=== PATIENT | female | born 1970 | race Caucasian/White ===

== ENCOUNTER 2018-06-17 16:52 | Emergency (ER) | payer OTHER ==
[~2018-06-17] VITALS: Ht 165.1 cm; Wt 88.5 kg
[~2018-06-17 16:52] MED LIST: ALLEGRA ALLERGY60 MG; AUGMENTIN 875875 MG PO; FISH OIL 1,0001 EAC5; FLONASE 0.05%50 MCG NASAL; GLUCOPHAGE500 MG; IBUPROFEN 600600 M1 PO; MULTIVITAMINS
[2018-06-17] MEDS ORDERED: ZOFRAN ODT4 MG DISSOLVE (17:19)
[2018-06-17 17:20] LABS: URINE BILIRUBIN NEGATIVE (Negative); URINE BLOOD 2+ (Negative); URINE CLARITY CLEAR; URINE COLOR YELLOW; URINE GLUCOSE-RANDOM* 2+ (Negative); URINE KETONES 2+ (Negative); URINE LEUKOCYTES-REFLEX NEGATIVE (Negative); URINE NITRITE-REFLEX NEGATIVE (Negative); URINE PROTEIN (DIPSTICK) 2+ (Negative); URINE SPECIFIC GRAVITY >= 1.030 (1.005-1.035); URINE UROBILINOGEN 0.2 E.U./dl (0.2-1.0)
[2018-06-17 17:21] LABS: ABSOLUTE NEUTROPHILS 9.4 thou/uL (1.4-8.2); BASOPHILS 0.3 % (0.0-2.0); HEMATOCRIT 47.6 % (37.0-47.0); HEMOGLOBIN 15.3 gm/dL (12.0-15.0); LYMPHOCYTES 11.7 % (24.0-44.0); MCH 25.6 pg (26.0-34.0); MCHC 32.1 g/dL (28.0-37.0); MCV 79.8 fL (80.0-100.0); MONOCYTES 5.9 % (1.0-8.0); PLATELET COUNT 209 thou/uL (150-400); POLYS 82.1 % (36.0-66.0); RBC 5.96 mil/uL (4.20-5.00); RDW 15.3 % (10.5-14.5); WBC 11.4 thou/uL (4.0-11.0)
[2018-06-17 17:28] LABS: CASTS None Seen /LPF (None Seen); SQUAMOUS 0-3 Few /LPF (0-3); URINE RBC 3-10 Few /HPF (0-2); YEAST-REFLEX Present (None Seen)
[2018-06-17 17:28] LABS: ANION GAP 12 mmol/L (7-16); BUN 15 mg/dL (7-18); CALCIUM 9.4 mg/dL (8.5-10.1); CHLORIDE 97 mmol/L (98-107); CO2 23 mmol/L (21-32); GLUCOSE 294 mg/dL (74-106); POTASSIUM 4.2 mmol/L (3.5-5.1); SODIUM 132 mmol/L (136-145)
[2018-06-17 17:29] LABS: CRYSTALS None Seen /LPF (None Seen); URINE WBC-REFLEX 0-5 Rare /HPF (0-5)
[2018-06-17 17:36] LABS: ALBUMIN 3.9 g/dL (3.4-5.0); LIPASE 103 U/L (73-393); SGOT 12 U/L (15-37); SGPT 17 U/L (30-65); TOTAL BILIRUBIN 0.5 mg/dL (<0.1-1.0); TOTAL PROTEIN 8.5 g/dL (6.4-8.2); TROPONIN-I <0.06 ng/mL (<0.06)
[2018-06-17] MEDS ORDERED: ZOFRAN ODT4 MG PO (22:15)
[2018-06-17] MEDS ORDERED: KEFLEX500 M1 PO (22:16)
[2018-06-17 22:28] VITALS: BP 179/99
--- NOTE | 2018-06-18 07:55 | EKG ---
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[place] : 1970 Requested By: Boo Caban Order Number: [id number] MD: Evert Lowe Measurements Intervals [place] Rate: 109 P: 61 MO: 118 QRS: 51 QRSD: 85 T: 14 QT: 341 QTc: 460 Interpretive Statements Sinus tachycardia Biatrial enlargement No previous ECG available for comparison Electronically Signed On 06-18-2018 7:55:03 CDT by Evert Lowe [email or web address] ��������������������������������������������� <ELECTRONICALLY SIGNED> ���������������������������������������� By: Evert Lowe MD, [facility] ��������������������������������������������� 06/18/18 [id number] 1704 Evert Lowe MD, FACC /EPI
== END 2018-06-17 22:29 | disposition home or self-care (01) ==
LOC: ER 16:52
PROVIDERS: Emergency Medicine
DX: R11.2 Nausea with vomiting, unspecified (principal); N39.0 Urinary tract infection, site not specified; E11.65 Type 2 diabetes mellitus with hyperglycemia; R03.0 Elevated blood-pressure reading, without diagnosis of hypertension